=== PATIENT | female | born 1950 | race Two or more races ===

== ENCOUNTER 2018-07-17 07:25 | Outpatient (CLI) | payer OTHER | END 2018-07-17 07:28 | disposition home or self-care (01) | LOC: RX STUDY 07:25 | DX: R10.84 Generalized abdominal pain (principal); K56.0 Paralytic ileus ==

== ENCOUNTER 2021-02-22 07:28 | Outpatient (CLI) | payer OTHER | END 2021-02-22 07:36 | disposition home or self-care (01) | LOC: TOM 07:28 | PROVIDERS: ATTEND Surgery | DX: C18.0 Malignant neoplasm of cecum (principal) ==

== ENCOUNTER 2021-02-28 11:00 | Inpatient (IN) | payer OTHER ==
[~2021-02-28] VITALS: Ht 149.9 cm; Wt 73.0 kg
[2021-02-28] MEDS ORDERED: METFOR PO (13:28)
[2021-02-28] MEDS ORDERED: SYNTHROID50 MCG PO (13:28)
[2021-02-28] MEDS ORDERED: VITAMIN D310 MCG/1 M PO (13:29)
[2021-02-28] MEDS ORDERED: ATORVASTATIN CA10 MG PO (13:29)
[2021-03-06] MEDS ORDERED: LOSARTAN POTASS25 MG (16:36)
[2021-03-06] MEDS ORDERED: GLIPIZIDE ER2.5 MG (16:36)
[2021-03-06] MEDS ORDERED: METFORMIN HCL750 MG (16:36)
[2021-03-10] MEDS ORDERED: INTESTINEX680 M1 PO (07:44)
[2021-03-10] MEDS ORDERED: ULTRAM50 MG PO (07:44)
[2021-03-10] MEDS ORDERED: LEVSIN0.125 MG PO (07:45)
== END 2021-03-10 22:19 | disposition home or self-care (01) | DRG 330 ==
LOC: O/R 03-06 09:14 → SURH 03-06 09:14
PROVIDERS: ADMIT Surgery; ATTEND Surgery
PROC: 07BC0ZX Excision of Pelvis Lymphatic, Open Approach, Diagnostic (ICD-10-PCS; 2021-03-06)
PROC: 3E0F7SF Introduction of Other Gas into Respiratory Tract, Via Natural or Artificial Opening (ICD-10-PCS; 2021-03-06)
PROC: 0DTF0ZZ Resection of Right Large Intestine, Open Approach (ICD-10-PCS; principal; 2021-03-06 10:45)
PROC: 3E0F7GC Introduction of Other Therapeutic Substance into Respiratory Tract, Via Natural or Artificial Opening (ICD-10-PCS; 2021-03-10)
DX: D12.0 Benign neoplasm of cecum (principal); C18.0 Malignant neoplasm of cecum; Z20.822 Contact with and (suspected) exposure to COVID-19; E03.8 Other specified hypothyroidism; E11.9 Type 2 diabetes mellitus without complications; Z79.4 Long term (current) use of insulin; E55.9 Vitamin D deficiency, unspecified